=== PATIENT | female | born 1940 | race Caucasian/White ===

== ENCOUNTER 2019-07-07 09:29 | Outpatient (RCR) | payer MEDICARE, OTHER, SELFPAY | END 2019-07-30 23:59 | disposition home or self-care (01) | LOC: SPT 09:29 | PROVIDERS: Family Provider Family Medicine; Referring Provider Physician Assistant; Visit Provider Physician Assistant | DX: M47.816 Spondylosis without myelopathy or radiculopathy, lumbar region (principal); M51.36 Other intervertebral disc degeneration, lumbar region; M79.18 Myalgia, other site; Z96.652 Presence of left artificial knee joint; M25.552 Pain in left hip; M25.551 Pain in right hip | CPT/HCPCS: 97110; 97161; G0283 ==

== ENCOUNTER 2019-07-31 06:00 | Outpatient (RCR) | payer MEDICARE, OTHER, SELFPAY | END 2019-08-06 10:00 | disposition home or self-care (01) | LOC: SPT 06:00 | PROVIDERS: Family Provider Family Medicine; Referring Provider Physician Assistant; Visit Provider Physician Assistant | DX: M47.816 Spondylosis without myelopathy or radiculopathy, lumbar region (principal); M51.36 Other intervertebral disc degeneration, lumbar region; M79.18 Myalgia, other site; Z96.652 Presence of left artificial knee joint; M25.551 Pain in right hip; M25.562 Pain in left knee | CPT/HCPCS: 97110 ==

== ENCOUNTER 2024-04-24 08:50 | Outpatient (RCR) | payer MEDICARE, OTHER, SELFPAY | END 2024-05-01 23:59 | disposition home or self-care (01) | LOC: SPT 08:50 | PROVIDERS: Visit Provider Student in an Organized Health Care Education/Training Program | DX: G89.4 Chronic pain syndrome (principal) | CPT/HCPCS: 97110; 97161; 97530 ==

== ENCOUNTER 2024-05-02 06:30 | Outpatient (RCR) | payer MEDICARE, OTHER, SELFPAY | END 2024-05-26 13:11 | disposition home or self-care (01) | LOC: SPT 06:30 | PROVIDERS: Visit Provider Student in an Organized Health Care Education/Training Program | DX: G89.4 Chronic pain syndrome (principal) | CPT/HCPCS: 97110; 97530 ==